=== PATIENT | female | born 1995 | race Caucasian/White ===

== ENCOUNTER → 2016-12-18 | Outpatient (REF) | payer OTHER ==
[2016-12-24 00:06] LABS: VANILLYLMANDELIC ACID,URINE 2.4 mg/L (Undefined); VANILLYLMANDELIC ACID,URINE 24 2.8 mg/24 hr (0.0-7.5)
== END ==
LOC: M LAB REF 11:57
PROVIDERS: ATTEND Internal Medicine
DX: I10 Essential (primary) hypertension (principal)

== ENCOUNTER → 2017-09-20 | Outpatient (REF) | payer OTHER ==
[2017-09-20 19:15] LABS: CONTROL LINE HCG INT CTR LINE PRESENT
== END ==
LOC: M LAB REF 18:20
PROVIDERS: ATTEND Internal Medicine
DX: N91.2 Amenorrhea, unspecified (principal)

== ENCOUNTER → 2018-03-28 | Outpatient (REF) | payer OTHER ==
[2018-03-28 18:43] LABS: CONTROL LINE HCG INT CTR LINE PRESENT; HCG, SERUM QUALITATIVE NEGATIVE (NEGATIVE)
== END ==
LOC: M LAB REF 17:32
DX: N91.2 Amenorrhea, unspecified (principal)

== ENCOUNTER → 2018-04-26 | Outpatient (CLI) | payer OTHER ==
[2018-04-26 19:28] LABS: THYROXINE (T4) 8.1 UG/DL (4.5-12.0)
[2018-04-26 19:28] LABS: FREE T4 0.78 NG/DL (0.76-1.46); PROLACTIN 7.9 NG/ML
[2018-04-26 20:05] LABS: ESTIMATED AVERAGE GLUCOSE 134 MG/DL (60-110); HEMOGLOBIN A1c 6.3 %
[2018-05-02 14:17] LABS: DEHYDROEPIANDROSTERONE UNCONJ 218 ng/dL (31-701); TESTOSTERONE FREE (DIRECT) 3.8 pg/mL (0.0-4.2)
== END ==
LOC: M WUC 17:16
DX: N91.0 Primary amenorrhea (principal)
CPT/HCPCS: 84146

== ENCOUNTER → 2018-07-26 | Outpatient (REF) | payer OTHER | LOC: M WUC 16:08 | DX: J02.9 Acute pharyngitis, unspecified (principal) ==

== ENCOUNTER → 2018-11-06 | Outpatient (REF) | payer OTHER ==
[2018-11-06 20:54] LABS: FERRITIN 94 NG/ML (8-252); IRON (FE) 66 UG/DL (50-170); PERCENT SATURATION 16.5 % (13.2-45.0); RHEUMATOID FACTOR QUANT < 10.0 IU/ML (<15.0); TOTAL IRON BINDING CAPACITY 399 UG/DL (250-450)
[2018-11-09 00:08] LABS: ANTI DOUBLE STRAND-DNA AB 3 IU/mL (0-9); ANTI-CHROMATIN ANTIBODIES <0.2 AI (0.0-0.9); ANTINUCLEAR ANTIBODIES DIRECT Negative (Negative); Lyme Disease IgG/IgM Antibodie <0.91 ISR (0.00-0.90); Lyme Disease IgM Ab Quantitati <0.80 index (0.00-0.79); RNP ANTIBODIES <0.2 AI (0.0-0.9); SJOGREN'S ANTI SS-A <0.2 AI (0.0-0.9); SJOGREN'S ANTI SS-B <0.2 AI (0.0-0.9); SMITH ANTIBODIES <0.2 AI (0.0-0.9)
[2018-11-12 14:53] LABS: MONO SCRN NEGATIVE (NEGATIVE)
== END ==
LOC: M LAB REF 17:35
PROVIDERS: ATTEND Internal Medicine
DX: L65.9 Nonscarring hair loss, unspecified (principal); M25.50 Pain in unspecified joint; Z84.89 Family history of other specified conditions; D64.9 Anemia, unspecified; R53.83 Other fatigue

== ENCOUNTER 2020-12-18 17:09 | Emergency (ER) | payer OTHER ==
[~2020-12-18] VITALS: Ht 160 cm; Wt 93.5 kg
[2020-12-18] MEDS ORDERED: MEDR10TA (17:19)
[2020-12-18] MEDS ORDERED: METF500T13 (17:19)
[2020-12-18] MEDS ORDERED: MULTTAB20 PO (17:19)
[2020-12-18] MEDS ORDERED: CITA40TA4 (17:19)
[2020-12-18 18:14] LABS: BASO % 0.4 % (0.0-1.0); EOS # 0.1 10^3/uL (0.0-0.5); EOS % 1.2 % (0.0-3.0); HEMATOCRIT 42.4 % (36.0-47.0); LYMPH # 3.1 10^3/uL (1.5-5.0); LYMPH % 30.3 % (24.0-44.0); MEAN CORPUSCULAR HEMOGLOBIN 30.5 pg (27.0-33.0); MEAN CORPUSCULAR VOLUME 92.4 fl (80.0-96.0); MONO # 0.7 10^3/uL (0.0-0.8); MONO % 6.6 % (2.0-8.0); NEUTROPHILS # 6.3 10^3/uL (1.5-8.5); NEUTROPHILS % 61.2 % (36.0-66.0); PLATELET COUNT, AUTOMATED 369 10^3/uL (150-450); RED BLOOD COUNT 4.59 10^6/uL (4.00-5.40); WHITE BLOOD COUNT 10.2 10^3/uL (4.0-10.0)
[2020-12-18 19:03] LABS: BLOOD UREA NITROGEN 8 MG/DL (7-18); CALCIUM LEVEL 9.4 MG/DL (8.5-10.1); CARBON DIOXIDE LEVEL 29 MEQ/L (21-32); CHLORIDE LEVEL 104 MEQ/L (98-107); CREATININE FOR GFR 0.87 MG/DL (0.55-1.30); GLOMERULAR FILTRATION RATE > 60.0 (>60); GLUCOSE, FASTING 96 MG/DL (70-100); HCG, SERUM QUANTITATIVE 7473 MIU/ML; POTASSIUM SERUM 3.9 MEQ/L (3.5-5.1); SODIUM LEVEL 138 MEQ/L (136-145)
--- NOTE | 2020-12-18 20:01 | REPVR ---
PROCEDURE INFORMATION: Exam: US First Trimester, Transabdominal Exam date and time: 12/18/2020 7:35 PM Age: 25 years old Clinical indication: Lmp or gestational age (in weeks): 7w 0d; Other: Vaginal bleeding; ; Additional info: Vaginal bleeding; R/O missed ab TECHNIQUE: Imaging protocol: Real-time transabdominal obstetrical ultrasound of the maternal pelvis and a first trimester , less than 14 weeks 0 days, with image documentation. COMPARISON: No relevant prior studies available. FINDINGS: Gestation: pole present. Embryonic/ heart rate: cardiac activity present. heart rate 146 bpm. Placenta: Posterior placenta with placenta previa. Follow-up ultrasound is recommended. No subchorionic hemorrhage identified. BIOMETRY: Gestational age (AUA): Estimated gestational age 7 weeks, 0 days by crown-rump length. Repeat ultrasound at 19-20 weeks for a detailed anatomic survey is recommended. Estimated due date (AUA): Estimated date of delivery August 06, 2021. [place] length: [place]-r[place] length 10 mm. MATERNAL: Neither ovary is visualized. No adnexal mass or free intraperitoneal fluid is seen. IMPRESSION: Single live intrauterine with an estimated gestational age of 7 weeks, 0 days. cardiac activity is present with a heart rate of 146 bpm. Repeat exam at 19-20 weeks for detailed anatomic survey is recommended. Electronically signed by: Nabil Meadows On 12/18/2020 20:01:42 PM
[2020-12-18] MEDS ORDERED: CEPH500C PO (20:29)
[2020-12-18 20:47] VITALS: BP 130/81
[2020-12-19] MEDS ORDERED: NOXI1TAB PO (21:13)
== END 2020-12-18 20:49 | disposition home or self-care (01) ==
LOC: M ED 17:09
DX: O46.91 Antepartum hemorrhage, unspecified, first trimester (principal); O23.41 Unspecified infection of urinary tract in pregnancy, first trimester; O99.341 Other mental disorders complicating pregnancy, first trimester; Z3A.01 Less than 8 weeks gestation of pregnancy; Z88.8 Allergy status to other drugs, medicaments and biological substances; Z79.899 Other long term (current) drug therapy

== ENCOUNTER 2020-12-19 21:03 | Emergency (ER) | payer OTHER ==
[~2020-12-19] VITALS: Ht 160 cm; Wt 93.3 kg
[~2020-12-19 21:03] MED LIST: CEPH500C PO; CITA40TA4; MEDR10TA; METF500T13; MULTTAB20 PO
[2020-12-19] MEDS ORDERED: NOXI1TAB PO (21:13)
[2020-12-19 22:04] LABS: BASO # 0.1 10^3/uL (0.0-0.2); BASO % 0.4 % (0.0-1.0); EOS # 0.2 10^3/uL (0.0-0.5); EOS % 1.1 % (0.0-3.0); HEMATOCRIT 38.4 % (36.0-47.0); HEMOGLOBIN 12.9 g/dl (12.0-15.5); LYMPH # 2.8 10^3/uL (1.5-5.0); LYMPH % 21.1 % (24.0-44.0); MEAN CORPUSCULAR HEMOGLOBIN 31.2 pg (27.0-33.0); MEAN CORPUSCULAR HGB CONC 33.6 g/dl (32.0-36.5); MONO % 7.4 % (2.0-8.0); NEUTROPHILS # 9.1 10^3/uL (1.5-8.5); NEUTROPHILS % 69.7 % (36.0-66.0); PLATELET COUNT, AUTOMATED 330 10^3/uL (150-450); RED BLOOD COUNT 4.13 10^6/uL (4.00-5.40); WHITE BLOOD COUNT 13.1 10^3/uL (4.0-10.0)
--- NOTE | 2020-12-19 22:44 | REPVR ---
PROCEDURE INFORMATION: Exam: US First Trimester, Transabdominal Exam date and time: 12/19/2020 10:28 PM Age: 25 years old Clinical indication: Lmp or gestational age (in weeks): 09/14/2020; Other: Vaginal bleeding, increased from yesterday; ; Additional info: Increased bleeding TECHNIQUE: Imaging protocol: Real-time transabdominal obstetrical ultrasound of the maternal pelvis and a first trimester , less than 14 weeks 0 days, with image documentation. COMPARISON: 1ST TRIMESTER US 12/18/2020 7:24 PM FINDINGS: Gestation: The endometrium measures 6 mm transvaginal with no intrauterine gestational sac which is absent since the prior study. MATERNAL: Uterus: The uterus measures 7.0 cm in its cephalocaudad dimension and 3.2 x 3.8 cm in its AP and lateral dimensions transabdominal. The uterus measures 7.7 cm in its cephalocaudad dimension and 3.0 x 3.6 cm in its AP and lateral dimensions. Cervix: Unremarkable. Right adnexa: The right ovary is not seen. Left adnexa: The left ovary measures 2.8 x 1.8 x 2.6 cm and demonstrates normal arterial and venous blood flow. Intraperitoneal space: No intraperitoneal free fluid. IMPRESSION: 1. Interval absence of intrauterine gestational sac since 12/18/2020 consistent with interval spontaneous AB. 2. Otherwise negative pelvic sonogram. The right ovary is not seen. Electronically signed by: Bryon London On 12/19/2020 22:44:43 PM
[2020-12-19 23:14] VITALS: BP 139/75
== END 2020-12-19 23:15 | disposition home or self-care (01) ==
LOC: M ED 21:03
DX: O03.9 Complete or unspecified spontaneous abortion without complication (principal); Z88.8 Allergy status to other drugs, medicaments and biological substances; Z79.899 Other long term (current) drug therapy

== ENCOUNTER → 2020-12-31 | Outpatient (REF) | payer OTHER ==
[~2020-12-31] MED LIST changes: +NOXI1TAB PO
== END ==
LOC: M LAB REF 12:02
PROVIDERS: ATTEND Obstetrics & Gynecology
DX: O03.9 Complete or unspecified spontaneous abortion without complication (principal)

== ENCOUNTER → 2021-01-06 | Outpatient (CLI) | payer OTHER | LOC: M LAB 08:52 | PROVIDERS: ATTEND Obstetrics & Gynecology | DX: O03.9 Complete or unspecified spontaneous abortion without complication (principal) ==

== ENCOUNTER → 2021-01-13 | Outpatient (CLI) | payer OTHER | LOC: M WUC 12:16 | PROVIDERS: ATTEND Obstetrics & Gynecology | DX: O03.9 Complete or unspecified spontaneous abortion without complication (principal) ==

== ENCOUNTER → 2021-06-08 | Outpatient (REF) | payer OTHER ==
[2021-06-08 18:30] LABS: HEMATOCRIT 41.5 % (36.0-47.0); HEMOGLOBIN 13.7 g/dl (12.0-15.5); MEAN CORPUSCULAR HEMOGLOBIN 30.5 pg (27.0-33.0); MEAN CORPUSCULAR VOLUME 92.4 fl (80.0-96.0); PLATELET COUNT, AUTOMATED 372 10^3/uL (150-450); RED BLOOD COUNT 4.49 10^6/uL (4.00-5.40); WHITE BLOOD COUNT 8.3 10^3/uL (4.0-10.0)
[2021-06-08 19:04] LABS: HCG, SERUM QUANTITATIVE 63421 MIU/ML
[2021-06-08 19:08] LABS: HEPATITIS B SURFACE ANTIGEN NEGATIVE (NEGATIVE)
[2021-06-08 19:36] LABS: HIV 1&2 SCREEN CENTAUR NEGATIVE (NEGATIVE)
[2021-06-09 10:20] LABS: HEPATITIS C VIRUS ABY INDEX < 0.0 INDEX (<0.8)
== END ==
LOC: M LAB REF 16:42
PROVIDERS: ATTEND Obstetrics & Gynecology
DX: O36.80X0 Pregnancy with inconclusive fetal viability, not applicable or unspecified (principal); Z32.01 Encounter for pregnancy test, result positive; Z3A.00 Weeks of gestation of pregnancy not specified

== ENCOUNTER → 2021-10-19 | Outpatient (CLI) | payer OTHER ==
[~2021-10-19] MED LIST changes: -CITA40TA4; +CITA40TA7
[2021-10-19 08:05] LABS: BASO % 0.3 % (0.0-1.0); EOS # 0.1 10^3/uL (0.0-0.5); EOS % 0.8 % (0.0-3.0); HEMATOCRIT 34.8 % (36.0-47.0); HEMOGLOBIN 11.6 g/dl (12.0-15.5); LYMPH # 2.2 10^3/uL (1.5-5.0); LYMPH % 19.8 % (24.0-44.0); MEAN CORPUSCULAR HEMOGLOBIN 30.9 pg (27.0-33.0); MEAN CORPUSCULAR HGB CONC 33.3 g/dl (32.0-36.5); MEAN CORPUSCULAR VOLUME 92.8 fl (80.0-96.0); MONO # 0.5 10^3/uL (0.0-0.8); MONO % 4.4 % (2.0-8.0); NEUTROPHILS # 8.4 10^3/uL (1.5-8.5); NEUTROPHILS % 74.3 % (36.0-66.0); PLATELET COUNT, AUTOMATED 305 10^3/uL (150-450); RED BLOOD COUNT 3.75 10^6/uL (4.00-5.40); WHITE BLOOD COUNT 11.3 10^3/uL (4.0-10.0)
== END ==
LOC: M LAB 10-17 08:17
PROVIDERS: ATTEND Advanced Practice Midwife
DX: Z34.82 Encounter for supervision of other normal pregnancy, second trimester (principal)

== ENCOUNTER → 2021-10-29 | Outpatient (CLI) | payer OTHER | LOC: M LAB 08:18 | PROVIDERS: ATTEND Advanced Practice Midwife | DX: O99.810 Abnormal glucose complicating pregnancy (principal) ==

== ENCOUNTER → 2021-11-11 | Outpatient (REF) | LOC: M LABSMTC 09:11 | PROVIDERS: ATTEND Pediatrics | DX: Z20.822 Contact with and (suspected) exposure to COVID-19 (principal) ==

== ENCOUNTER → 2021-12-14 | Outpatient (REF) | payer OTHER | LOC: M LAB REF 12:16 | PROVIDERS: ATTEND Advanced Practice Midwife | DX: Z36.85 Encounter for antenatal screening for Streptococcus B (principal) ==

== ENCOUNTER → 2022-10-28 | Outpatient (REF) ==
[~2022-10-28] MED LIST changes: +ACET-683 PO; +IBUP-1022 PO; +LEVO25TA5 PO; -MEDR10TA; +MEDR10TA9; +PROP60TA14 PO; +PYRI100L PO; +UNIS25TA3 PO; +ZOLO25TA PO
== END ==
LOC: M EMP 10:34
PROVIDERS: ATTEND Family Medicine
DX: Z11.52 Encounter for screening for COVID-19 (principal)

== ENCOUNTER → 2022-10-30 | Outpatient (REF) | LOC: M LABSMTC 11:56 | PROVIDERS: ATTEND Family Medicine | DX: Z11.52 Encounter for screening for COVID-19 (principal); Z20.822 Contact with and (suspected) exposure to COVID-19 ==

== ENCOUNTER → 2023-02-03 | Outpatient (CLI) | payer OTHER ==
[2023-02-03 10:39] LABS: BASO % 0.5 % (0.0-1.0); EOS # 0.2 10^3/uL (0.0-0.5); EOS % 2.6 % (0.0-3.0); HEMATOCRIT 42.9 % (36.0-47.0); HEMOGLOBIN 14.3 g/dl (12.0-15.5); LYMPH # 3.4 10^3/uL (1.5-5.0); LYMPH % 40.3 % (24.0-44.0); MEAN CORPUSCULAR HGB CONC 33.3 g/dl (32.0-36.5); MEAN CORPUSCULAR VOLUME 90.1 fl (80.0-96.0); MONO # 0.6 10^3/uL (0.0-0.8); MONO % 6.9 % (2.0-8.0); NEUTROPHILS # 4.2 10^3/uL (1.5-8.5); NEUTROPHILS % 49.5 % (36.0-66.0); PLATELET COUNT, AUTOMATED 334 10^3/uL (150-450); RED BLOOD COUNT 4.76 10^6/uL (4.00-5.40); WHITE BLOOD COUNT 8.5 10^3/uL (4.0-10.0)
[2023-02-03 10:52] LABS: ERYTHROCYTE SEDIMENTATION RATE 21 mm/hr (0-20)
[2023-02-03 11:07] LABS: RHEUMATOID FACTOR QUANT < 3.5 IU/ML (<14)
[2023-02-03 11:08] LABS: ALBUMIN 4.3 G/DL (3.2-5.2); ALKALINE PHOSPHATASE 71 U/L (46-116); ALT/SGPT 20 U/L (7.0-40); AST/SGOT 18 U/L (<34); BILIRUBIN,TOTAL 0.4 MG/DL (0.3-1.2); BLOOD UREA NITROGEN 11 MG/DL (9-23); CALCIUM LEVEL 9.2 MG/DL (8.5-10.1); CARBON DIOXIDE LEVEL 26 MMOL/L (20-31); CHLORIDE LEVEL 107 MMOL/L (98-107); CREATININE FOR GFR 0.94 MG/DL (0.55-1.30); GLOMERULAR FILTRATION RATE > 60.0 (>60); GLUCOSE, FASTING 84 MG/DL (60-100); POTASSIUM SERUM 4.2 MMOL/L (3.5-5.1); SODIUM LEVEL 137 MMOL/L (136-145); TOTAL 25(OH) VITAMIN D 10.2 NG/ML (20.0-100.0); TOTAL PROTEIN 7.9 G/DL (5.7-8.2)
[2023-02-03 11:09] LABS: THYROID STIMULATING HORMONE 6.368 uIU/ML (0.55-4.78)
[2023-02-04 12:08] LABS: ANTINUCLEAR ANTIBODIES DIRECT Negative (Negative)
== END ==
LOC: M PLALAB 08:55
PROVIDERS: ATTEND Psychiatry & Neurology Neurology
DX: R51.9 Headache, unspecified (principal)

== ENCOUNTER → 2024-08-25 | Outpatient (REF) | payer OTHER | LOC: M LAB REF 19:24 | PROVIDERS: ATTEND Registered Nurse | DX: R30.0 Dysuria (principal) ==

== ENCOUNTER → 2024-09-12 | Outpatient (REF) | payer OTHER ==
[2024-09-12 14:51] LABS: C REACTIVE PROTEIN QUANTITATIV 1.03 MG/DL (<1.0)
[2024-09-12 14:53] LABS: RHEUMATOID FACTOR QUANT < 3.5 IU/ML (<14)
[2024-09-14 21:07] LABS: RNP ANTIBODY <1.0 NEG AI (<1.0 NEG); SM ANTIBODY <1.0 NEG AI (<1.0 NEG); SSA SJOGRENS A <1.0 NEG AI (<1.0 NEG); SSB SJOGRENS B <1.0 NEG AI (<1.0 NEG)
[2024-09-18 13:48] LABS: ANTI DS-DNA AB NEGATIVE (NEGATIVE)
== END ==
LOC: M LAB REF 13:47
PROVIDERS: ATTEND Internal Medicine
DX: M25.50 Pain in unspecified joint (principal)

== ENCOUNTER → 2024-09-18 | Outpatient (REF) | LOC: M EMP 13:49 | PROVIDERS: ATTEND Family Medicine | DX: Z11.52 Encounter for screening for COVID-19 (principal) ==